=== PATIENT | male | born 1975 | race Caucasian/White ===

== ENCOUNTER 2017-03-26 10:33 | Emergency (ER) | payer BC, OTHER ==
[~2017-03-26] VITALS: Ht 180.3 cm; Wt 138.7 kg
[2017-03-26 10:38] VITALS: TEMP 36.6; Ht 180.3 cm; Wt 138.7 kg
[2017-03-26] MEDS ORDERED: LABETALOL HCL IV 5 MG/ML 20ML IV STA (10:58)
[2017-03-26] MEDS ORDERED: LISINOPRIL 20 MG TAB PO STA (10:58)
[2017-03-26] MEDS ORDERED: ACETAMINOPHEN 500 MG TAB PO STA (10:58)
[2017-03-26] MEDS ORDERED: IBUPROFEN 600 MG TAB PO STA (10:58)
--- NOTE | 2017-03-26 11:08 | EMERGENCY ROOM VISIT NOTE ---
History Report prepared by Rakan: Yane Rosen Under the Supervision of: Dr. Mp Chaidez M.D. 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 He has a history of HTN. He used to take Lisinopril, though has not maintained his prescription for over a month. He reports taking Lipitor. He denies any headaches, palpitations, chest pain, or shortness of breath. He notes right ankle swelling for two days. He notes that he could barely walk on it last night. He reported to an urgent care today for the ankle pain and was advised to come to the ED for high blood pressure. He denies any trauma or recent injury to the ankle. He took Ibuprofen last night for the pain, which seemed to provide mild relief. He denies any history of blood clots. He denies any recent long distance trips. Source of History: patient Onset: CLAIMS ASSISTANT Position: other (global ) Quality: other (high blood pressure) Timing: other (persistent) Associated Symptoms: No headache, No chest pain, No SOB Note: He notes right ankle pain and swelling. He denies any trauma or recent injury to the ankle. He denies any palpitations. Review of Systems See HPI for pertinent positives & negatives. A total of 10 systems reviewed and were otherwise negative. Past Medical & Surgical Medical Problems: (1) HTN (hypertension) Surgical Problems: (1) H/O left knee surgery Family History Cancer Diabetes mellitus FH: heart disease FHx: lung disease Hypertension Kidney disease Kidney stones Social History Smoking Status: Unknown if Ever Smoked Smokeless Tobacco Use: Yes (1/2 can/day) Alcohol Use: occasionally (1/week) Marital Status: in relationship Housing Status: lives with significant other Occupation Status: employed Current/Historical Medications Scheduled Atorvastatin (Lipitor), 1 TAB PO DAILY Lisinopril (Lisinopril), 1 TAB PO QD Miscellaneous Medications Lisinopril (Zestril), 10 MG PO Allergies Coded Allergies: No Known Allergies (Unverified , 03/26/17) Physical Exam Vital Signs Date Time Temp Pulse Resp B/P (MAP) Pulse Ox O2 Delivery O2 Flow Rate FiO2 1/31/18 13:05 65 16 116/66 97 Room Air 03/26/17 12:09 62 14 162/97 97 Room Air 03/26/17 12:09 67 03/26/17 11:30 62 12 161/103 96 Room Air 03/26/17 10:38 36.6 90 20 204/127 98 Physical Exam GENERAL: Patient is in no acute distress. HEENT: No acute trauma, normocephalic atraumatic, mucous membranes moist, no nasal congestion, no scleral icterus. NECK: No stridor, no adenopathy, no meningismus, trachea is midline. LUNGS: Clear to auscultation bilaterally, no wheeze, no rhonchi, breath sounds equal. HEART: Without murmurs gallops or rubs, regular rate and rhythm. ABDOMEN: Soft, nontender, bowel sounds positive, no hernias, no peritonitis. EXTREMITIES: Right lateral ankle is swollen and painful to touch, no gross deformity. No pedal edema to either leg. No cellulitis. Right foot non-tender. NEUROLOGIC: Oriented x 3, no acute motor or sensory deficits, no focal weakness. SKIN: No rash, no jaundice, no diaphoresis. Medical Decision & Procedures ER Provider Diagnostic Interpretation: Radiology results as stated below per my review and radiologist interpretation: CHEST ONE VIEW PORTABLE CLINICAL HISTORY: Altered mental status. Weakness. COMPARISON STUDY: No previous studies for comparison. FINDINGS: The heart is mildly enlarged. There is no overt failure. There is no focal pulmonary consolidation. There are no pleural effusions.[ IMPRESSION: No active disease in the chest. Electronically signed by: Gato Parsons M.D. 03/26/2017 11:37 AM Dictated Date/Time: 03/26/2017 11:37 AM R ANKLE MIN 3 VIEWS ROUTINE CLINICAL HISTORY: 41 years-old Male presenting with pain, swelling laterally. TECHNIQUE: Frontal, mortise, and lateral views of the right ankle were obtained. COMPARISON: None. FINDINGS: Ankle mortise intact. No acute fracture or malalignment. Prominent use of flight at the insertion of the Achilles tendon and small enthesophyte at the origin of the plantar fascia. No other evidence of degenerative change. Mild diffuse soft tissue swelling at the ankle. IMPRESSION: No acute osseous injury of the right ankle. Electronically signed by: Jersey Ponce M.D. 03/26/2017 11:43 AM Dictated Date/Time: 03/26/2017 11:41 AM Laboratory Results 03/26/17 11:10 Red Blood Count 5.25, Mean Corpuscular Volume 85.9, Mean Corpuscular Hemoglobin 29.7, Mean Corpuscular Hemoglobin Concent 34.6, Mean Platelet Volume 10.3, Neutrophils (%) (Auto) 71.0, Lymphocytes (%) (Auto) 19.5, Monocytes (%) (Auto) 6.9, Eosinophils (%) (Auto) 1.8, Basophils (%) (Auto) 0.4, Neutrophils # (Auto) 7.93, Lymphocytes # (Auto) 2.18, Monocytes # (Auto) 0.77, Eosinophils # (Auto) 0.20, Basophils # (Auto) 0.05 03/26/17 11:10 Test 03/26/17 11:10 White Blood Count 11.17 K/uL (4.8-10.8) Red Blood Count 5.25 M/uL (4.7-6.1) Hemoglobin 15.6 g/dL (14.0-18.0) Hematocrit 45.1 % (42-52) Mean Corpuscular Volume 85.9 fL (80-100) Mean Corpuscular Hemoglobin 29.7 pg (25-34) Mean Corpuscular Hemoglobin Concent 34.6 g/dl (32-36) Platelet Count 344 K/uL (130-400) Mean Platelet Volume 10.3 fL (7.4-10.4) Neutrophils (%) (Auto) 71.0 % Lymphocytes (%) (Auto) 19.5 % Monocytes (%) (Auto) 6.9 % Eosinophils (%) (Auto) 1.8 % Basophils (%) (Auto) 0.4 % Neutrophils # (Auto) 7.93 K/uL (1.4-6.5) Lymphocytes # (Auto) 2.18 K/uL (1.2-3.4) Monocytes # (Auto) 0.77 K/uL (0.11-0.59) Eosinophils # (Auto) 0.20 K/uL (0-0.5) Basophils # (Auto) 0.05 K/uL (0-0.2) RDW Standard Deviation 40.8 fL (36.4-46.3) RDW Coefficient of Variation 13.0 % (11.5-14.5) Immature Granulocyte % (Auto) 0.4 % Immature Granulocyte # (Auto) 0.04 K/uL (0.00-0.02) Anion Gap 8.0 mmol/L (3-11) Est Creatinine Clear Calc Drug Dose 123.3 ml/min Estimated GFR () 94.8 Estimated GFR (Non- 81.8 BUN/Creatinine Ratio 12.3 (10-20) Calcium Level 9.0 mg/dl (8.5-10.1) Total Bilirubin 0.5 mg/dl (0.2-1) Aspartate Amino Transf (AST/SGOT) 18 U/L (15-37) Alanine Aminotransferase (ALT/SGPT) 31 U/L (12-78) Alkaline Phosphatase 114 U/L (45-117) Troponin I 0.043 ng/ml (0-0.045) Total Protein 8.7 gm/dl (6.4-8.2) Albumin 3.9 gm/dl (3.4-5.0) Globulin 4.8 gm/dl (2.5-4.0) Albumin/Globulin Ratio 0.8 (0.9-2) Laboratory results reviewed by me. Medications Administered Medications (Trade) Dose Ordered Sig/Tabatha Route Start Time Stop Time Status Last Admin Dose Admin Labetalol HCl (Normodyne IV) 20 mg NOW STAT IV 03/26/17 10:58 03/26/17 11:02 DC 03/26/17 11:09 20 MG Lisinopril (Zestril Tab) 20 mg NOW STAT PO 03/26/17 10:58 03/26/17 11:02 DC 03/26/17 11:30 20 MG Ibuprofen (Motrin Tab) 600 mg NOW STAT PO 03/26/17 10:58 03/26/17 11:02 DC 03/26/17 11:08 600 MG Acetaminophen (Tylenol Tab) 1,000 mg NOW STAT PO 03/26/17 10:58 03/26/17 11:02 DC 03/26/17 11:07 1,000 MG ECG Indication: other (high blood pressure) Rate (beats per minute): 70 Rhythm: normal sinus Findings: nonspecific-ST abn (diffuse), no acute ischemic change, no ectopy Comparison ECG Date: no prior available Change: Patient's electrocardiogram interpreted by me. ED Course 1054: The patient was evaluated in room C9. A complete history and physical exam was performed. 1058: Ordered Tylenol 1,000 mg PO, Ibuprofen 600 mg PO, Lisinopril 20 mg PO, and Labetalol HCl 20 mg IV 1200: I reassessed the patient at this time. He is feeling better and resting comfortably. His blood pressure is still elevated. 1248: I reassessed the patient at this time. He is feeling better and resting comfortably. I discussed the results and treatment plan with the patient. I answered all pertaining questions that he had. He expressed understanding and verbalized agreement. The patient will be discharged home. Medical Decision The patient is a 41 year old male who presents to the ED with complaints of high blood pressure. Differential diagnoses considered include ankle sprain, fracture, DVT, foot injury, missed medication dosing, renal failure, electrolyte imbalance, cardiac ischemia, and essential hypertension. The patient presents with some ankle pain and a high blood pressure. He has not taken his typical blood pressure medications in about a month. Films of the right ankle were done, there was no fracture. Clinically, his exam was consistent with an ankle sprain. There was a mild leukocytosis, this could be consistent with infection or possibly just the stress of his presentation. No concerning anemia. No significant electrolyte abnormality, kidney failure or hepatitis. EKG shows a normal sinus rhythm, no acute ischemia. Cardiac enzyme testing times one is not consistent with acute cardiac injury. Chest film does not show cardiomegaly , CHF or pneumonia. The patient received IV labetalol and oral lisinopril. His blood pressure has improved significantly. He feels well, he is asymptomatic. He will be discharged with outpatient family doctor follow-up. A gel splint was applied to the ankle. Tylenol was suggested for pain, ice was suggested. He will follow with his doctor in a few days and have his blood pressure rechecked. A prescription for lisinopril was written. Medication Reconcilliation Current Medication List: was personally reviewed by me Blood Pressure Screening Patient's blood pressure: Elevated blood pressure Blood pressure disposition: Referred to PCP Impression Primary Impression: Hypertension Additional Impression: Right ankle sprain Scribe Attestation The scribe's documentation has been prepared under my direction and personally reviewed by me in its entirety. I confirm that the note above accurately reflects all work, treatment, procedures, and medical decision making performed by me. Departure Information Dispostion Home / Self-Care Prescriptions Lisinopril (Lisinopril) 20 Mg Tab 1 TAB PO QD, #30 TAB 3 Refills Prov: Mp Chaidez M.D. 03/26/17 Referrals Tony Beyer PA-C (PCP) Forms HOME CARE DOCUMENTATION FORM, IMPORTANT VISIT INFORMATION, WORK / SCHOOL INSTRUCTIONS Patient Instructions My [facility] Additional Instructions lisinopril daily for the blood pressure see your [facility] [place] for a recheck this week return for worsening symptoms advil or tylenol for ankle pain use the gel splint for comfort rest ice Problem Qualifiers
[2017-03-26 11:23] LABS: BASO % 0.4 %; BASO ABS # 0.05 K/uL (0-0.2); EOS % 1.8 %; HEMATOCRIT 45.1 % (42-52); HEMOGLOBIN 15.6 g/dL (14.0-18.0); IG# 0.04 K/uL (0.00-0.02); LYMPH % 19.5 %; LYMPH ABS # 2.18 K/uL (1.2-3.4); MEAN CELL VOLUME 85.9 fL (80-100); MEAN CORPUSCULAR HEMOGLOBIN 29.7 pg (25-34); MEAN CORPUSCULAR HGB CONC 34.6 g/dl (32-36); MEAN PLATELET VOLUME 10.3 fL (7.4-10.4); MONO % 6.9 %; MONO ABS # 0.77 K/uL (0.11-0.59); NEUT ABS # 7.93 K/uL (1.4-6.5); PLATELET COUNT 344 K/uL (130-400); RED CELL DISTRIBUTION WIDTH SD 40.8 fL (36.4-46.3); WHITE BLOOD COUNT 11.17 K/uL (4.8-10.8)
[2017-03-26] MEDS ORDERED: LISI-461 PO (11:31)
[2017-03-26] MEDS ORDERED: ATOR10TA82 PO (11:31)
[2017-03-26 11:37] LABS: ALBUMIN 3.9 gm/dl (3.4-5.0); CREATININE 1.1 mg/dl (0.60-1.40); POTASSIUM 4.1 mmol/L (3.5-5.1)
--- NOTE | 2017-03-26 11:38 | DIAGNOSTIC IMAGING REPORT ---
CHEST ONE VIEW PORTABLE CLINICAL HISTORY: Altered mental status. Weakness. COMPARISON STUDY: No previous studies for comparison. FINDINGS: The heart is mildly enlarged. There is no overt failure. There is no focal pulmonary consolidation. There are no pleural effusions.[ IMPRESSION: No active disease in the chest. Electronically signed by: Gato Parsons M.D. 03/26/2017 11:37 AM Dictated Date/Time: 03/26/2017 11:37 AM
[2017-03-26 11:42] LABS: TOTAL PROTEIN 8.7 gm/dl (6.4-8.2)
--- NOTE | 2017-03-26 11:44 | DIAGNOSTIC IMAGING REPORT ---
R ANKLE MIN 3 VIEWS ROUTINE CLINICAL HISTORY: 41 years-old Male presenting with pain, swelling laterally. TECHNIQUE: Frontal, mortise, and lateral views of the right ankle were obtained. COMPARISON: None. FINDINGS: Ankle mortise intact. No acute fracture or malalignment. Prominent use of flight at the insertion of the Achilles tendon and small enthesophyte at the origin of the plantar fascia. No other evidence of degenerative change. Mild diffuse soft tissue swelling at the ankle. IMPRESSION: No acute osseous injury of the right ankle. Electronically signed by: Jersey Ponce M.D. 03/26/2017 11:43 AM Dictated Date/Time: 03/26/2017 11:41 AM
[2017-03-26] MEDS ORDERED: LSN20 PO (12:56)
[2017-03-26 13:05] VITALS: BP 116/66; PULSE 65; O2SAT 97
== END 2017-03-26 13:14 | disposition home or self-care (01) ==
LOC: C.EDB 10:36 → C.EDC 13:14
DX: I10 Essential (primary) hypertension (principal); S93.401A Sprain of unspecified ligament of right ankle, initial encounter; X58.XXXA Exposure to other specified factors, initial encounter; F17.220 Nicotine dependence, chewing tobacco, uncomplicated; Z80.9 Family history of malignant neoplasm, unspecified; Z83.3 Family history of diabetes mellitus; Z82.49 Family history of ischemic heart disease and other diseases of the circulatory system; Z84.1 Family history of disorders of kidney and ureter